=== PATIENT | female | born 1935 | race Caucasian/White ===

== ENCOUNTER 2016-12-10 08:43 | Day surgery (SDC) | payer MEDICARE, OTHER ==
[~2016-12-10] VITALS: Ht 152.4 cm; Wt 60.3 kg
[2016-12-10] VITALS (11 sets, daily range): BP systolic 118–159; BP diastolic 53–99; PULSE 56–62; RESP 14–20; O2SAT 93–98
[2016-12-10 09:36] LABS: BASOPHILS % (AUTO) 1.2 % (0-3); MONOCYTES % (AUTO) 11.7 % (4-12); Mean Corpuscular Hemoglobin 33.1 pg (27.0-35.0); Mean Corpuscular Volume 99.5 fL (81-100); NEUTROPHILS % (AUTO) 55.7 % (40-74); Platelet Count 195 bil/L (150-400)
[2016-12-10] MEDS ORDERED: 0.9% Sodium Chloride 1,000 ML ONE (09:46)
[2016-12-10 10:00] LABS: INR 0.95 ratio
[2016-12-10] MEDS ORDERED: CALC600T12 PO (10:23)
[2016-12-10] MEDS ORDERED: LISI-571 PO (10:23)
[2016-12-10] MEDS ORDERED: MULT1CAP33 PO (10:23)
[2016-12-10] MEDS ORDERED: ASPI325T32 PO (10:23)
[2016-12-10] MEDS ORDERED: LEVO25TA5 PO (10:23)
[2016-12-10] MEDS ORDERED: PREC VG (10:23)
[2016-12-10] MEDS ORDERED: ASCO-294 PO (10:23)
[2016-12-10] MEDS ORDERED: CLOB15CR3 TOP (10:23)
[2016-12-10] MEDS ORDERED: [UNRECOGNIZED DRUG - CODE] PO (10:23)
[2016-12-10] MEDS ORDERED: CHOL200047 PO (10:23)
[2016-12-10] MEDS ORDERED: FISH1CAP15 PO (10:23)
[2016-12-10] MEDS ORDERED: CYAN500 PO (10:23)
[2016-12-10] MEDS ORDERED: VITA400C64 PO (10:24)
[2016-12-10] MEDS ORDERED: 0.9% Sodium Chloride 1,000 ML IV PRN (10:31)
[2016-12-10] MEDS ORDERED: CeFAZolin Inj 2 GM in IV Premix 1 EACH IV SCH (10:35)
--- NOTE | 2016-12-10 11:35 | DRSVH ---
[facility] [address] [place] [id number] Echocardiogram Report Name: BEA HERNANDEZ Study Date: 12/10/2016 Height: 60 in Hospital Exam Location: IS Weight: 132 lb Gender: Female BSA: 1.6 m2 : 1935 Age: 81 yrs BP: 149/60 mmHg Reason For Study: Chest pain Performed By: Elizabeth Sepulveda Referring Physician: RICHA HENLEY Interpretation Summary 1. Normal left ventricular size, wall thickness and systolic function with an estimated EF of 60-65% 2. Normal right ventricular size and systolic function. Moderate tricuspid regurgitation. The estimated RVSP is 48 mm Hg 3. Mild to moderate mitral regurgitation. No old study for comparison Procedure: A two-dimensional transthoracic echocardiogram with color flow and Doppler was performed. The study quality was technically good. There is no prior echocardiogram noted for this patient. The patient was in normal sinus rhythm during the exam. Left Ventricle: The left ventricle is normal in size, wall thickness, and systolic function without any focal wall motion abnormalities. The ejection fraction is estimated to be 60-65%. Right Ventricle: The right ventricle is normal size. The right ventricular systolic function is normal. Atria: The left atrium is mildly dilated. Right atrial size is normal. The interatrial septum is intact with no evidence for an atrial septal defect. No color doppler evidence for an ASD. Mitral Valve: The mitral valve leaflets appear mildly thickened, but open well. Leaflets are thin with normal excursion. There is mild to moderate mitral regurgitation. Aortic Valve: The aortic valve is trileaflet. The aortic valve opens well. There is mild aortic regurgitation. Tricuspid Valve: The tricuspid valve leaflets are thin and pliable. There is moderate tricuspid regurgitation. The right ventricular systolic pressure is estimated at 48 mmHg assuming a right atrial pressure of 3 mm Hg. Pulmonic Valve: The pulmonic valve is not well seen, but is grossly normal. There is mild to moderate pulmonic regurgitation. Great Vessels: The aortic root is normal size. The dimensions of the ascending aorta are normal. The diameter is 3.5 cm. The IVC is of normal diameter and collapses greater than 50% with a sniff. This suggests a low right atrial pressure of 3 mm Hg. Pericardium/ Pleura There is no pericardial effusion. There is no pleural effusion. MMode/2D Measurements & Calculations LVIDd: 4.4 cm LA dimension: 3.8 cm RA long axis Ao root diam LVIDs: 2.7 cm FS: 39.0 % LA A2 area: 26.9 cm RA area Aortic Jxn: 2.4 cm IVSd: 0.90 cm LA A4 area: 17.6 cm asc Aorta Diam LVPWd: 0.76 cm LA length (vol) : 15.8 cm RA vol Ao Arch Diam (Prox LA vol: 84.3 ml : 43.6 ml Trans): 3.0 cm LA vol index RA : 27.8 mm/ : 53.9 ml/m2 RVDd major : 5.3 cm LV doshi. diameter/BSA LV sys. diameter/BSA RVD1 (basal) RVD2 (mid): 2.9 cm (cm/m^2): 2.8 (cm/m^2): 1.7 Doppler Measurements & Calculations Ao V2 max MV E max norberto MV E/A: 1.5 TR max norberto : 124.9 cm/sec : 85.0 cm/sec Med Peak E' Norberto : 333.4 cm/sec Ao max PG MV A max norberto TR max PG : 6.2 mmHg : 57.8 cm/sec E/E' med: 13.7 : 44.5 mmHg Ao mean PG MV P1/2t: 70.3 msec Lat Peak E' Norberto PA V2 max MR ERO: 0.13 cm2 : 114.2 cm/sec AI P1/2t E/E' lat: 9.3 PA mean PG : 745.1 msec E/e' average AI dec slope PA Accel Time : 127.1 cm/s2c Pulm A Revs Dur : 0.11 sec MV A dur : 0.16 sec MV dec time MV P1/2t max norberto Ao V2 mean MR flow rate : 0.24 sec : 76.7 cm/sec : 70.2 cm3/sec MVA(P1/2t): 3.1 cm2 Ao V2 VTI MR PISA radius : 32.9 cm PA V2 mean Pulm A Revs Dur - MV A : 72.6 cm/sec Dur: -0.05 msec Reading Physician:11:35 AM
[2016-12-10] MEDS ORDERED: 0.9% Sodium Chloride 250 ML ONE (14:13)
[2016-12-10] MEDS ORDERED: Heparin 5,000 Units/500 mL NS Premix IV ONE (14:13)
[2016-12-10] MEDS ORDERED: Bupivacaine-MPF 0.5% 30 mL Inj ONE (14:14)
[2016-12-10] MEDS ORDERED: fentaNYL-PF 50 mCg/mL 2 mL Inj ONE ×2 (15:06→15:58)
[2016-12-10] MEDS: 0.9% Sodium Chloride 1,000 ML IV SCH (16:18)
[2016-12-10] MEDS ORDERED: HYDROcodone-APAP 5-325 mg Tablet PO PRN (16:20)
[2016-12-10] MEDS ORDERED: Ondansetron 2 mg/mL 2 mL Inj IVPUSH PRN (16:20)
[2016-12-10] MEDS: CeFAZolin Inj 1 GM in IV Premix 1 EACH IV SCH (16:30)
--- NOTE | 2016-12-10 16:51 | OP ---
[address] [address] OPERATIVE REPORT PATIENT: BEA HRENANDEZ : 1935 MR#: [id number] ADMIT: 12/10/2016 JOB ID: [id number] DATE OF SURGERY: 12/10/2016 PREOPERATIVE DIAGNOSIS(ES): Sick sinus syndrome. POSTOPERATIVE DIAGNOSIS(ES): Sick sinus syndrome. PROCEDURES PERFORMED: 1. Dual-chamber pacemaker implantation. 2. Left upper extremity venogram. 3. Fluoroscopy. SURGEON: Usman Montgomery MD. ASSISTANTS: Angelina Styles and Dave Mathew. IMPLANTED DEVICES: 1. [employer] pulse generator, model JO5734, serial #[id number]. 2. Right atrial lead [employer] 2088TC 46 cm, serial #[id number]. 3. Right ventricular lead, [employer] 2088TC 52 cm, serial #[id number]. ANESTHESIA: Bolus dosing of Versed and fentanyl were utilized for an appropriate level of sedation. INDICATION: Mrs. Hernandez is a pleasant 81-year-old woman with a structurally normal heart and documented sick sinus syndrome with pauses of greater than 8 seconds associated with syncope. After discussion of risks and benefits of pacemaker implantation, she opted to proceed. PROCEDURAL DESCRIPTION: Informed consent was obtained. The patient was taken to the EP laboratory in a fasting nonsedated state where she was prepped and draped in usual sterile fashion. The left infraclavicular region was infiltrated with 40 cc of a 50/50 mixture of bupivacaine and lidocaine. Once adequate anesthesia had been achieved, a 3 cm transverse incision was performed 2 cm below the left clavicle. Dissection was carried down to the pectoralis fascia and a pocket was then fashioned using a combination of electrocautery and blunt dissection. Once adequate anesthesia had been achieved, a left upper extremity venogram was performed. Under venographic guidance, the left axillary vein was cannulated twice with a micropuncture needle to deploy two 0.035, 3 mm J guidewires. Over the first of these, a 6-Lebanese tear-away sheath was advanced. Once the guidewire was removed, an active fixation wire was advanced to the RV outflow tract and then to the RV apex. The lead was affixed in position using its associated active fixation screw. It was connected to the external analyzer and demonstrated appropriately sensed R waves, impedance, and capture threshold. The lead was checked to 10 V and there was no evidence of diaphragmatic stimulation. Attention was now paid to placement of the right atrial lead. Over the previously placed guidewire, another 6-Lebanese tear-away sheath was advanced. Once the guidewire was removed, an active fixation lead was advanced to the right atrial appendage. Extensive mapping was undertaken. Ultimately, a position of adequate sensing and threshold was identified. The lead was fixed in position using associated active fixation screw. It was connected to the external analyzer and demonstrated appropriately sensed P waves, impedance, and capture threshold was checked to 10 V and there was no evidence of diaphragmatic stimulation. Once the position and redundancy of both leads had been confirmed in multiple fluoroscopic views, the leads were then anchored to the prepectoralis fascia using the associated anchoring sleeves and Ethibond sutures. The pocket was then copiously irrigated out with antibiotic solution. The leads were connected to a generator, generator was placed in the pocket and affixed to the floor of the pocket using 1-0 Ti-Cron suture. The incision was then closed with running layers of absorbable suture. The wound was dressed with skin adhesive and a small dressing at the end the of procedure. The needle, sponge, and instrument counts were all correct. COMPLICATIONS: None. BLOOD LOSS: Negligible. DEVICE MEASURED DATA: 1. Right atrial lead 3.0 mV, 1 V at 0.4 msec 430 ohms. 2. RV lead 11.7 mV, 700 ohms, 0.5 V at 0.4 msec. FINAL PARAMETER RATE: Parameters DDD 60 at 120 beats per minute. IMPRESSION: Successful dual-chamber pacemaker implantation. PLAN: 1. Stat portable chest x-ray. 2. PA and lateral chest x-ray in the morning . 3. IV Ancef through tomorrow. 4. Keflex x7 days. 5. Wound check in one week. ATTENDING STATEMENT: Usman Montgomery MD, electrophysiology, was present for and has supervised/performed all aspects of this procedure.
--- NOTE | 2016-12-10 20:15 | NUR ---
[facility] Patient returned to [facility] bed 3 from quality assurance/r&d lab technician at 1645. family at bedside. Left chest pacemaker incision without bleeding or hematoma. Ice pack to site X 2 hours. Chest X ray and ECG 12 complete. Taking PO and ate dinner. C/O incision pain 5/10 Medicated with Hydrocodone X 1. Pain decreased to 3/10. Transferred to room 3025 by at 1930. Report to receiving RN.
[2016-12-10] MEDS ORDERED: Estrogens Conjugated 30 Gm Vaginal Cream VAGINAL PRN (22:15)
[2016-12-11] MEDS: CeFAZolin Inj 1 GM in IV Premix 1 EACH IV SCH (00:30)
[2016-12-11 00:59] VITALS: BP 123/69; PULSE 69; RESP 16; O2SAT 95
[2016-12-11] MEDS: 0.9% Sodium Chloride 1,000 ML IV SCH (02:18)
[2016-12-11 05:10] VITALS: BP 136/66; PULSE 68; RESP 16; O2SAT 96
[2016-12-11 05:36] VITALS: PULSE 60
--- NOTE | 2016-12-11 06:34 | NUR ---
Pain Patient c/o headache pain 03/01. patient declined [place] states it makes her too dizzy. patient medicated with 975mg of Tylenol PO. 30 minutes later patient sleeping, appears comfortable. Pacemaker site c/d/i. arm in sling. no swelling no drainage. tele in place. vitals stable. Patient tried taking home medications at bedside, patient educated not to take home medications. Patient requested AM medications now. patient given thyroid medication and BP medication per request.
[2016-12-11 08:00] VITALS: PULSE 60
[2016-12-11] MEDS ORDERED: Calcium Carbonate (Oyster Shell) 500 mg Tablet PO SCH (08:30)
[2016-12-11] MEDS ORDERED: Omega-3 Fatty Acids 1,000 mg Capsule PO SCH (08:30)
[2016-12-11] MEDS ORDERED: Clobetasol Prop 0.05% 15 Gm Ointment TOPICAL SCH (08:30)
[2016-12-11] MEDS ORDERED: Ascorbic Acid 500 mg Tablet PO SCH (08:30)
[2016-12-11 09:12] VITALS: BP 101/57; PULSE 62; RESP 18; O2SAT 96
--- NOTE | 2016-12-11 09:18 | PCM.DIMED ---
Discharge Instructions Date of Service Dec 11, 2016 Dates of Hospitalization Discharge Diagnosis Discharge Diagnosis Syncope Sick Sinus Syndrome Prolonged Sinus Pauses Hypertension Hypothyroidism Diet Heart Healthy Activity Other (Keep incision dry one day. Do not extend left elbow high above shoulder for one month. Do not lift, push or pull more than 10 lbs with the left arm for one month.) Call your provider Fever or Chills, Bleeding, Excessive diarrhea Patient Instructions Follow-up in: 1 week Mid-level Provider (F9): Pako Benavidez PA-C Follow-up with Mid-level in: 6 weeks Pako Benavidez PA-C Dec 11, 2016 09:18
[2016-12-11] MEDS ORDERED: CEPH500C PO (09:39)
--- NOTE | 2016-12-11 09:57 | DRSVH ---
PROCEDURE: X-RAY CHEST ONE VIEW, PORTABLE ([id number]) INDICATIONS: For new leads placed TECHNIQUE: One view of the chest was acquired. COMPARISON: [facility], CR, XR CHEST 2VW, 12/11/2016, 7:08. FINDINGS: Surgical changes and devices: Dual-chamber lead cardiac pacemaker present in expected position. Mult iple surgical clips. Lungs and pleura: No pleural effusions or pneumothorax. Lungs are clear. Mediastinum: Mediastinal contours appear normal. Heart size is normal. Bones and chest wall: No suspicious bony lesions. Overlying soft tissues appear unremarkable. IMPRESSION: No immediate complications status post cardiac pacemaker placement. No immediate complic ations status post cardiac pacemaker placement. Dictated by: Oziel ROBERT Interpreted: Wendy Montero MD on 12/11/2016 at 9:57 Transcribed by: KARYN on 12/11/2016 at 9:57 Approved by: Wendy Montero M.D. on 12/11/2016 at 15:07
--- NOTE | 2016-12-11 10:10 | DRSVH ---
PROCEDURE: X-RAY CHEST, TWO VIEWS ([id number]) INDICATIONS: For new lead placement TECHNIQUE: 2 views of the chest were acquired. COMPARISON: [facility], CR, XR CHEST 1VW (PORTABLE), 12/10/2016, 16:44. FINDINGS: Surgical changes and devices: Stable position of left pacer. Multiple surgical clips redemonstrated. Lungs and pleura: No pleural effusions or pneumothorax. Lungs are clear. Mediastinum: Mediastinal contours are normal. Heart size is mildly enlarged. Bones and chest wall: No suspicious bony abnormalities. Soft tissues appear unremarkable. IMPRESSION: Stable chest post pacer placement. Dictated by: Oziel ROBERT Interpreted: Wendy Montero MD on 12/11/2016 at 10:09 Transcribed by: KARYN on 12/11/2016 at 10:09 Approved by: Wendy Montero M.D. on 12/11/2016 at 15:12
--- NOTE | 2016-12-11 10:11 | DIS ---
[address] [address] DISCHARGE SUMMARY PATIENT: BEA HERNANDEZ : 1935 MR#: [id number] ADMIT: 12/10/2016 JOB ID: [id number] DIS: 12/11/2016 REASON FOR ADMISSION: Pacemaker implant. CHIEF COMPLAINT: Lightheadedness and syncope. BRIEF HISTORY: The patient is a delightful 81-year-old woman without significant cardiac history, who has for the past two years, been having lightheaded episodes and has even had syncope, who eventually was placed on a 14 day Holter monitor which revealed multiple pauses with the longest being about 8 seconds. She was symptomatic during the pauses and she is not on any AV shadi or sinus node blocking agents. She again has no previous cardiac workup or history. She was advised of her need for a cardiac pacemaker to prevent symptoms and was eager to proceed. COURSE IN HOSPITAL: The patient was admitted to the [facility] and taken to the coreroom foundry laborer, where she received the dual-chamber pacemaker without incident. She was then taken back to the [facility] for recovery from sedation and then [place] [facility] [place] and telemetry monitoring. She did well overnight and in the morning felt well and was ambulatory without difficulty. Her pacemaker site was closed and dry and there was no hematoma. The pacemaker function showed atrial pacing and evaluation with the box coverer hand showed excellent capture and sensing thresholds. Chest x-ray showed good lead positions and no pneumothorax. She denied any lightheadedness, dyspnea or chest pain this morning. DISPOSITION: The patient was discharged home in good condition with a follow up appointment at the [facility] office in one week. She was asked not to extend her left elbow above her shoulder for one month and not to lift, push or pull more than 10 pounds with the left arm for one month. She will follow a regular diet and take medications as prescribed. DISCHARGE MEDICATIONS: This is a long list. MEDICATIONS: 1. Cephalexin 500 mg b.i.d. 2. Vitamin C 500 mg, 2 tablets daily. 3. Aspirin 325 mg tablet, 1/2 tablet daily. 4. Calcium carbonate 600 mg daily. 5. Vitamin D3 2000 units daily. 6. Clobetasol applied topically daily. 7. Vitamin B12 1000 mcg daily. 8. Premarin 0.5 mg cream applied vaginally daily. 9. Fish oil capsule 1 daily. 10. Glucosamine 1500 mg 2 tabs daily. 11. Levothyroxine 25 mcg daily. 12. Lisinopril 5 mg b.i.d. 13. Multivitamin daily. 14. Vitamin E 400 units daily. FINAL DIAGNOSES: 1. Sick sinus syndrome. 2. Prolonged sinus pauses up to 8 seconds. 3. Syncope. 4. Hypertension. 5. Hypothyroidism.
--- NOTE | 2016-12-11 11:08 | NUR ---
Discharge Pt discharged at this time, all belongings gathered and returned to pt, IV x 2 D/Cd intact, tele monitor removed. VSS, no complains of increased pain, bleeding, warmth or swelling at pacer placement site. Discharge packet printed and reviewed with pt and daughter. [place] taken [place] [facility] [place] front entrance to be transported home via private vehicle driven by daughter.
== END 2016-12-11 11:17 | disposition home or self-care (01) ==
LOC: SOUO 08:43 → MPC 19:36 → SOUO 12-11 11:17
PROVIDERS: ATTEND Internal Medicine Cardiovascular Disease
DX: I49.5 Sick sinus syndrome (principal); R55 Syncope and collapse; I10 Essential (primary) hypertension; E03.9 Hypothyroidism, unspecified; Z79.82 Long term (current) use of aspirin
CPT/HCPCS: 33208; 36415; 71010; 71020; 80048; 85025; 85610; 93005; C1769; C1785; C1892; C1898; C8929; G0463; J0690; J1644; J2250; J3010; J7030; J7050; Q9967